=== PATIENT | female | born 1995 | race African-American/Black ===

== ENCOUNTER 2018-04-02 16:17 | Emergency (ER) | payer MEDICAID, OTHER, SELFPAY ==
[2018-04-02] MEDS ORDERED: Ketorolac Tromethamine 30 MG/ML VIAL ONE (16:45)
[2018-04-02 17:40] LABS: Hemoglobin 5.4 g/dL (12.0-16.0); Mean Corpuscular HGB CONC 29.4 g/dL (32.0-36.0); Mean Corpuscular Volume 64.7 fL (78.0-98.0); Mean Platelet Volume 10.4 fL (7.4-10.4); Platelet Count 447 thou/uL (130-400); RBC Distribution Width 19.3 % (11.5-14.5); Red Blood Cell (RBC) Count 2.86 mill/uL (4.20-5.40); White Blood Cell (WBC) Count 9.2 thou/uL (4.8-10.8)
[2018-04-02 17:46] LABS: BHCG - Serum Negative (NEGATIVE); Pregs Control Background? CLEAR/WHITE (CLR/WHITE); Pregs Control Bar Appear? YES (CONTROL BAR)
[2018-04-02 17:58] LABS: ALT (SGPT) 9 U/L (8-55); AST (SGOT) 12 U/L (5-34); Albumin 4.2 g/dL (3.5-5.0); Alkaline Phosphatase 70 U/L (40-150); Anion Gap 12 mmol/L (10-20); BUN (Urea Nitrogen) 7 mg/dL (7.0-18.7); Bilirubin, Total 0.3 mg/dL (0.2-1.2); Calc. Creatinine Clearance 0 mL/min (70-130); Carbon Dioxide 23 mmol/L (22-29); Chloride 104 mmol/L (98-107); Estimated GFR-MDRD Greater than 90; Globulin 3.4 g/dL (2.4-3.5); Glucose 86 mg/dL (70-105); Potassium 3.9 mmol/L (3.5-5.1); Protein, Total 7.6 g/dL (6.0-8.3); Sodium 135 mmol/L (136-145)
[2018-04-02 18:01] LABS: #Lymphocytes 2.3 thou/uL (1.20-3.40); #Monocytes 0.7 thou/uL (0.11-0.59); #Neutrophils 6.1 thou/uL (1.40-6.50); %Basophils 0.3 % (0.0-1.0); %Eosinophils 0.5 % (0.0-10.0); %Lymphocytes 25.2 % (21.0-51.0); %Monocytes 7.9 % (0.0-10.0); %Neutrophils 66.2 % (42.0-75.0); Anisocytosis SLIGHT = 6-15 cells (100X) (0-5/hpf); Hypochromia SLIGHT = 6-15 cells (100X) (0-5/hpf); MDiff Complete? YES; Microcytosis MODERATE=15-30 cells (100X) (0-5/hpf); PLT Morphology Comment Appears Increased; Polychromasia SLIGHT = 2-3 cells (100X) (0-2/hpf); Target Cells SLIGHT = 2-5 cells (100X) (0-1/hpf)
--- NOTE | 2018-04-05 16:26 | EKG ---
Test Reason : HEADACHE Blood Pressure : / mmHG Vent. Rate : 107 BPM Atrial Rate : 107 BPM P-R Int : 126 ms QRS Dur : 082 ms QT Int : 334 ms P-R-T Axes : 048 060 013 degrees QTc Int : 445 ms Sinus tachycardia Nonspecific T wave abnormality Abnormal ECG Confirmed by JESUS LOMELI ([id number]), communications editor MARY HARMON ([id number]) on 04/05/2018 4:26:18 PM Referred By: ARMANI Confirmed By:JESUS LOMELI
== END 2018-04-03 00:22 | disposition home or self-care (01) ==
LOC: ERS 16:17
DX: D64.9 Anemia, unspecified (principal); N93.8 Other specified abnormal uterine and vaginal bleeding; R51 Headache; J45.909 Unspecified asthma, uncomplicated
CPT/HCPCS: 36415; 36430; 80053; 84703; 85025; 85060; 86850; 86900; 86901; 93005; 96361; 96374; J1885; P9016